=== PATIENT | male | born 1965 | race Caucasian/White ===

== ENCOUNTER 2019-08-10 10:19 | Emergency (ER) | payer OTHER ==
[~2019-08-10] VITALS: Ht 170.2 cm; Wt 154.2 kg
[2019-08-10 10:47] VITALS: BP_SYST 147
--- NOTE | 2019-08-10 13:51 | NUR ---
Patient to ER bed 4 to gown for evaluation. Side rails up.
--- NOTE | 2019-08-10 13:52 | NUR ---
Patient is awake, alert, and oriented x4. Patient is complaining of cold x1 week, dry cough. Patient denies nausea, vomiting, and diarrhea.
--- NOTE | 2019-08-10 15:00 | NUR ---
ER Dr. Perez at bedside examining patient.
[2019-08-10 15:13] VITALS: BP_SYST 128
--- NOTE | 2019-08-10 15:13 | NUR ---
Patient given written and verbal discharge instructions and verbalizes understanding. ER MD discussed with patient the results and treatment provided. Patient in stable condition. ID arm band removed. Rx of augmentin given. Patient educated on pain management and to follow up with PMD. Pain Scale 0/10. Opportunity for questions provided and answered. Medication side effect fact sheet provided.
== END 2019-08-10 15:13 | disposition home or self-care (01) ==
LOC: SED 10:19
DX: R05 Cough (principal); E11.9 Type 2 diabetes mellitus without complications
CPT/HCPCS: 82962; 99283

== ENCOUNTER 2023-02-24 10:46 | Emergency (ER) | payer OTHER ==
[~2023-02-24] VITALS: Ht 170.2 cm; Wt 172.4 kg
[2023-02-24 10:57] VITALS: BP_SYST 233
[2023-02-24] MEDS ORDERED: KETOROLAC TROMETHAMINE 60 MG/2 ML VIAL IM ONE (11:00)
[2023-02-24 11:21] LABS: BILIRUBIN,URINE NEGATIVE (NEGATIVE); BLOOD, URINE NEGATIVE (NEGATIVE); CLARITY/URINE CLEAR (CLEAR); COLOR,URINE YELLOW (YELLOW); GLUCOSE,URINE 3+ (NEGATIVE); KETONES,URINE TRACE (NEGATIVE); LEUKOCYTE ESTERASE ,URINE NEGATIVE (NEGATIVE); NITRITE, URINE NEGATIVE (NEGATIVE); PROTEIN URINE NEGATIVE (NEGATIVE)
[2023-02-24] MEDS ORDERED: HYDR-3927 PO (12:16)
[2023-02-24] MEDS ORDERED: IBUP-1971 PO (12:16)
[2023-02-24 12:56] VITALS: BP_SYST 149
== END 2023-02-24 12:56 | disposition home or self-care (01) ==
LOC: SED 10:46
DX: M54.50 Low back pain, unspecified (principal); M79.662 Pain in left lower leg; E11.9 Type 2 diabetes mellitus without complications; I10 Essential (primary) hypertension; Z79.899 Other long term (current) drug therapy
CPT/HCPCS: 99283; 96372; 81003; J1885

== ENCOUNTER 2023-09-10 16:34 | Emergency (ER) | payer OTHER ==
[~2023-09-10] VITALS: Ht 170.2 cm; Wt 145.1 kg
[~2023-09-10 16:34] MED LIST: HYDR-3927 PO; IBUP-1971 PO
[2023-09-10 16:52] VITALS: BP_SYST 147; PULSE 99; RESP 22; TEMP 98.3; O2SAT 98
[2023-09-10 17:53] LABS: INFLUENZA TYPE A Negative (NEGATIVE); INFLUENZA TYPE B NEGATIVE (NEGATIVE)
[2023-09-10 17:57] LABS: COVID19 ANTIGEN SOFIA FIA NEGATIVE (NEGATIVE)
[2023-09-10] MEDS ORDERED: CEFU250T85 PO (18:29)
[2023-09-10] MEDS ORDERED: METH-776 PO (18:29)
[2023-09-10 18:52] VITALS: BP_SYST 147; PULSE 99; RESP 22; TEMP 98.3; O2SAT 98
== END 2023-09-10 18:52 | disposition home or self-care (01) ==
LOC: SED 16:34
DX: J20.9 Acute bronchitis, unspecified (principal); R05.9 Cough, unspecified; R06.02 Shortness of breath; E11.9 Type 2 diabetes mellitus without complications; I10 Essential (primary) hypertension; Z79.899 Other long term (current) drug therapy; Z20.822 Contact with and (suspected) exposure to COVID-19
CPT/HCPCS: 36415; 71046-TC; 99284